=== PATIENT | female | born 1955 | race Caucasian/White ===

== ENCOUNTER → 2016-06-20 | Emergency (ER) | payer OTHER ==
[~2016-06-20] MED LIST: ACETAMINOPHEN 325 MG TABLET (FP) ONE; ACETAMINOPHEN 325 MG TABLET (FP) PO ONE; MECLIZINE HCL 25 MG TABLET (FP) ONE; MECLIZINE HCL 25 MG TABLET (FP) PO ONE; ONDANSETRON *ODT* 4 MG TABLET ONE; ONDANSETRON 4 MG TABLET PO ONE; ONDANSETRON 8 MG TABLET (FP) PO ONE; diazePAM 5 MG TABLET ONE; diazePAM 5 MG TABLET PO ONE
[2016-06-20 15:42] VITALS: BMI 24.6
--- NOTE | 2016-06-20 16:00 | PDOC ---
History of Present Illness - History of Present Illness Initial Comments: 06/20/16 17:15 Patient is a 60 year old female with significant medical hx of asthma who is presenting to the ED with dizziness since this afternoon. The patient states she felt well this morning until around 12:30 when she began experiencing dizziness that felt as if the room was spinning. The patient states that her dizziness intensely worsens with movement of her her head. She also endorses some associated nausea but no vomiting. Patient reports this is the first time she's experienced dizziness like this. Denies headache, weakness, numbness, tingling, paresthesia, LOC, chest pain, or shortness of breath. <Lisbeth Oro - Last Filed: 06/20/16 17:15> - General History Source: Patient Exam Limitations: No Limitations <Alejandro Chao - Last Filed: 06/23/16 10:22> - General Chief Complaint: Lightheaded Stated Complaint: HEAD PAIN Time Seen by Provider: 06/20/16 15:46 Past History <Lisbeth Oro - Last Filed: 06/20/16 17:15> - Past Medical History Asthma: Yes - Surgical History Cholecystectomy: Yes - Psycho/Social/Smoking Cessation Hx Suicidal Ideation: No Smoking History: Never smoked Hx Alcohol Use: No Drug/Substance Use Hx: No <Alejandro Chao - Last Filed: 06/23/16 10:22> - Past Medical History Allergies/Adverse Reactions: Allergies Allergy/AdvReac Type Severity Reaction Status Date / Time No Known Allergies Allergy Verified 06/20/16 15:30 Home Medications: Ambulatory Orders Diazepam [Valium] 5 mg PO BID PRN #6 tablet MDD 2 06/20/16 Meclizine HCl 25 mg PO Q6H PRN #20 tablet 06/20/16 Metoclopramide HCl [Reglan] 10 mg PO Q8H PRN #15 tablet 06/20/16 Review of Systems - Review of Systems Comments:: 06/20/16 17:19 GENERAL/CONSTITUTIONAL: No fever or chills. No weakness. HEAD, EYES, EARS, NOSE AND THROAT: No change in vision. No ear pain or discharge. No sore throat. CARDIOVASCULAR: No chest pain or shortness of breath. RESPIRATORY: No cough, wheezing, or hemoptysis. GASTROINTESTINAL: Nausea. No vomiting, diarrhea or constipation. GENITOURINARY: No dysuria, frequency, or change in urination. MUSCULOSKELETAL: No joint or muscle swelling or pain. No neck or back pain. SKIN: No rash NEUROLOGIC: Vertigo. No headache, loss of consciousness, or change in strength/ sensation. <Lisbeth Oro - Last Filed: 06/20/16 17:15> *Physical Exam - Vital Signs Last Vital Signs Temp Pulse Resp BP Pulse Ox 97.5 F L 67 20 125/73 100 06/20/16 15:25 06/20/16 15:25 06/20/16 15:25 06/20/16 15:25 06/20/16 15:25 - Physical Exam Comments: 06/20/16 17:20 GENERAL: Awake, alert, and fully oriented, in no acute distress HEAD: No signs of trauma EYES: PERRLA, EOMI, sclera anicteric, conjunctiva clear ENT: Auricles normal inspection, hearing grossly normal, nares patent, oropharynx clear without exudates. Moist mucosa NECK: Normal ROM, supple, no lymphadenopathy, JVD, or masses LUNGS: Breath sounds equal, clear to auscultation bilaterally. No wheezes, and no crackles HEART: Regular rate and rhythm, normal S1 and S2, no murmurs, rubs or gallops ABDOMEN: Soft, nontender, normoactive bowel sounds. No guarding, no rebound. No masses EXTREMITIES: Normal range of motion, no edema. No clubbing or cyanosis. No cords, erythema, or tenderness NEUROLOGICAL: 5/5 motor strength to the upper and lower extremities. Rapid alternative movements intact. No dysmetria. Upon lateral movements of head very intensely vertiginous. Cranial nerves II through XII grossly intact. Normal speech SKIN: Warm, Dry, normal turgor, no rashes or lesions noted. ENDOCRINE: No increased thirst. No abnormal weight change. HEMATOLOGIC/LYMPHATIC: No anemia, easy bleeding, or history of blood clots. ALLERGIC/IMMUNOLOGIC: No hives or skin allergy. <PreethiLisbeth - Last Filed: 06/20/16 17:15> - Vital Signs Last Vital Signs Temp Pulse Resp BP Pulse Ox 97.5 F L 67 20 125/73 100 06/20/16 15:25 06/20/16 15:25 06/20/16 15:25 06/20/16 15:25 06/20/16 15:25 - Physical Exam Comments: 06/23/16 10:22 CN II-XII is intact, not grossly intact. <Alejandro Chao - Last Filed: 06/23/16 10:22> Heart Score/ECG Review #1 ECG reviewed & interpreted by me at: 15:30 06/20/16 17:12 NSR 73, no std/marlee, normal axis, normal intervals, QTC 438 msec <Alejandro Chao - Last Filed: 06/23/16 10:22> Medical Decision Making - Medical Decision Making 06/20/16 15:54 A portion of this note was documented by scribe services under my direction. I have reviewed the details of the note, within reason, and agree with the documentation with the following case summary and management plan written by me. Patient treated in the ED. Nursing notes are reviewed and incorporated into the medical decision-making. Vital signs reviewed. Peripheral IV access obtained by the nurse, laboratory studies are drawn and sent, reviewed and interpreted by myself. Vital Signs Temp Pulse Resp BP Pulse Ox 97.5 F L 67 20 125/73 100 06/20/16 15:25 06/20/16 15:25 06/20/16 15:25 06/20/16 15:25 06/20/16 15:25 60-year-old female with history of asthma presents presents with vertigo. Patient reports that she woke up earlier this morning feeling well. Approximately 12:30 PM, the patient felt suddenly very intensely vertiginous with nausea. Denies vomiting. Reports feeling very a couple. Denies headache. First-time episode. This appears very much like to be peripheral vertigo. We'll give meclizine and reassess. 06/20/16 19:[address] reviewed. No acute findings. Initially, the meclizine had improved somewhat. However, by mouth Valium was given and the patient reports significant relief. Again this is likely peripheral vertigo. Head CT is negative. Patient feels well enough to go home. I discussed the physical exam findings, ancillary test results and final diagnoses with the patient. I answered all of the patient's questions. The patient was satisfied with the care received and felt comfortable with the discharge plan and treatment plan. The patient will call their primary care physician within 24 hours to arrange follow-up and will return to the Emergency Department with any new, persistant or worsening symptoms. <Alejandro Chao - Last Filed: 06/23/16 10:22> *DC/Admit/Observation/Transfer - Attestations Scribe Attestion: 06/20/16 17:22 Documentation prepared by Lisbeth Oro, acting as medical biller for Alejandro Chao MD. <Lisbeth Oro - Last Filed: 06/20/16 17:15> - Discharge Dispostion Admit: No <Alejandro Chao - Last Filed: 06/23/16 10:22> Diagnosis at time of Disposition: Vertigo - Discharge Dispostion Disposition: HOME Condition at time of disposition: Improved - Prescriptions Prescriptions: Meclizine HCl 25 mg PO Q6H PRN #20 tablet PRN Reason: Vertigo Metoclopramide HCl [Reglan] 10 mg PO Q8H PRN #15 tablet PRN Reason: Nausea Diazepam [Valium] 5 mg PO BID PRN #6 tablet MDD 2 PRN Reason: Vertigo - Patient Instructions Printed Discharge Instructions: DI for Vertigo Additional Instructions: Your Head CT is unremarkable. You have peripheral vertigo. Please take a tablet of meclizine (25 mg) every 6 hours as needed for vertigo. You may take a tablet of 5 mg valium every 12 hours as needed for severe vertigo if meclizine does not work. This medication may make you drowsy so please do not drink or drive. For nausea, please take the reglan as prescribed. Follow up with your doctor. If your dizziness is severely worsened, please return to the ER for further evaluation. Print Language: TONGAN
[2016-06-20 19:40] VITALS: BP 137/85; PULSE 82; TEMP 98
--- NOTE | 2016-06-23 13:40 | EKG ---
Test Reason : Blood Pressure : / mmHG Vent. Rate : 073 BPM Atrial Rate : 073 BPM P-R Int : 132 ms QRS Dur : 080 ms QT Int : 398 ms P-R-T Axes : 043 054 061 degrees QTc Int : 438 ms NORMAL SINUS RHYTHM NORMAL ECG NO PREVIOUS ECGS AVAILABLE Confirmed by OLVIN TORRES MD ([id number]) on 06/23/2016 1:39:39 PM Referred By: Confirmed By:OLVIN TORRES MD
== END | disposition home or self-care (01) ==
LOC: JER 15:23
DX: R42 Dizziness and giddiness (principal); J45.909 Unspecified asthma, uncomplicated
CPT/HCPCS: 70450-TC; 93005; 93010; 99283-25